=== PATIENT | male | born 1950 | race Caucasian/White ===

== ENCOUNTER 2023-03-07 20:12 | Inpatient (IN) | payer MEDICARE, BC ==
[~2023-03-07] VITALS: Ht 170.2 cm; Wt 96.4 kg
[2023-03-07 20:48] LABS: BASOPHILS % (AUTO) 0.4 % (0-1); EOSINOPHILS # (AUTO) 0.2 X10'3 (0-0.9); EOSINOPHILS % (AUTO) 1.6 % (0-6); HEMATOCRIT 39.8 % (42.0-52.0); HEMOGLOBIN 13.2 g/dl (14.0-17.9); LYMPHOCYTES % (AUTO) 17.7 % (21-51); MEAN CORPUSCULAR HEMOGLOBIN 33.2 PG (27.0-31.0); MEAN CORPUSCULAR HGB CONC 33.1 g/dL (33.0-36.5); MEAN CORPUSCULAR VOLUME 100.4 FL (78-98); MONOCYTES # (AUTO) 1.3 X10'3 (0-0.9); MONOCYTES % (AUTO) 11.3 % (2-12); NEUTROPHILS # (AUTO) 7.9 X10'3 (1.8-7.7); PLATELET COUNT 234 X10'3 (140-440); RED BLOOD COUNT 3.97 X10'6 (4.70-6.10); RED CELL DISTRIBUTION WIDTH 13.3 % (11.5-14.5); WHITE BLOOD COUNT 11.5 X10'3 (4.5-11.0)
[2023-03-07 21:03] LABS: ALANINE AMINOTRANSFERASE 22 U/L (12-78); ALBUMIN 3.3 G/DL (3.4-5.0); ALKALINE PHOSPHATASE 49 IU/L (46-116); ANION GAP 11 (8-16); ASPARTATE AMINO TRANSFERASE 15 U/L (10-37); BILIRUBIN,TOTAL 1.2 MG/DL (0.1-1.0); BLOOD UREA NITROGEN 11 MG/DL (7-18); CALCIUM 8.3 MG/DL (8.5-10.1); CHLORIDE 107 MMOL/L (99-107); GLUCOSE 97 MG/DL (70-104); LIPASE 67 U/L (73-393); POTASSIUM 3.8 MMOL/L (3.5-5.1); SODIUM 142 MMOL/L (135-145); TOTAL CARBON DIOXIDE 24.2 MMOL/L (24-32); TOTAL PROTEIN 6.7 G/DL (6.4-8.2); eGFR 73 ML/MIN
[2023-03-08] VITALS (17 sets, daily range): BP systolic 126–159; BP diastolic 74–95
[2023-03-08] MEDS: dextrose 5%-1/2 normal saline 1,000 ML IV SCH ×3 (01:30→20:16)
[2023-03-08] MEDS ORDERED: ondansetron 4mg rapidly disintigrating tab PO PRN (01:30)
[2023-03-08] MEDS ORDERED: mag hydrox/Alum hydrox/simeth 30ml oral suspension PO PRN (01:30)
[2023-03-08] MEDS ORDERED: HYDROmorphone inj. 0.5 MG/0.5 ML DISP.SYRIN IV PRN (01:30)
[2023-03-08] MEDS ORDERED: acetaminophen 325mg tablet PO PRN ×2 (01:30)
[2023-03-08] MEDS ORDERED: morphine 2 MG/ML inj. syringe IV PRN ×2 (01:30→15:10)
[2023-03-08] MEDS ORDERED: diphenhydrAMINE 50 mg/ml inj IV PRN (01:30)
[2023-03-08] MEDS ORDERED: HYDROcodone/acetaminophen 10/325mg tab PO PRN (01:30)
[2023-03-08] MEDS ORDERED: magnesium hydroxide 30ml (MOM) UD suspension PO PRN (01:30)
[2023-03-08] MEDS ORDERED: acetaminophen 650mg rectal suppository RC PRN (01:30)
[2023-03-08] MEDS ORDERED: HYDROcodone/acetaminophen 5mg/325mg tablet PO PRN (01:30)
[2023-03-08] MEDS ORDERED: bisacodyl 10mg suppository rectal RC PRN (01:30)
[2023-03-08] MEDS ORDERED: diphenhydrAMINE 25mg capsule PO PRN (01:30)
[2023-03-08 02:33] LABS: HEMOGLOBIN A1C 5.8 % (4.5-6.2)
[2023-03-08] MEDS ORDERED: VANCOMYCIN 1,500MG inj. 1,500 MG in normal saline 500ml IV soln 300 ML IV ONE (02:38)
[2023-03-08 02:39] LABS: CREATINE KINASE 129 U/L (39-308); ETHANOL < 0.010 GM/DL (0.0-0.010); MAGNESIUM 2.2 MG/DL (1.5-2.4); PHOSPHORUS 2.5 MG/DL (2.3-4.5)
[2023-03-08] MEDS: ondansetron/PF 4mg/2ml inj IV PRN ×2 (05:47→20:19)
[2023-03-08 06:07] LABS: CLARITY,URINE CLEAR (Clear); COLOR,URINE YELLOW (Yellow); GLUCOSE, URINE NEGATIVE (Neg); KETONES,URINE 15 mg/dl (Neg); LEUKOCYTE ESTERASE ,URINE NEGATIVE (Neg); NITRITES, URINE NEGATIVE (Neg); OCCULT BLOOD,URINE TRACE-INTACT (Neg); PH,URINE 5.5 (4.8-8.0); PROTEIN,URINE NEGATIVE (Neg); URINE AMPHETAMINE SCREEN NEGATIVE (Neg); URINE BARBITUATE SCREEN NEGATIVE (Neg); URINE BENZODIAZEPINES SCREEN NEGATIVE (Neg); URINE CANNABINOID SCREEN POSITIVE (Neg); URINE COCAINE SCREEN NEGATIVE (Neg); URINE METHADONE SCREEN NEGATIVE (Neg); URINE OPIATE SCREEN NEGATIVE (Neg); URINE PHENCYCLIDINE SCREEN NEGATIVE (Neg)
[2023-03-08 06:13] LABS: UA COLLECTION TYPE URINAL
[2023-03-08 06:15] LABS: BACTERIA,URINE NONE SEEN /HPF (Neg); MUCUS STRANDS NONE SEEN /LPF (Neg); RBC,URINE 0-2 /HPF (0-2); SQUAMOUS EPITHELIAL CELL,UR FEW /LPF (FEW)
[2023-03-08] MEDS: piperacillin/tazo 4.5gm/100ml 100 ML IV SCH ×3 (07:07→22:00)
[2023-03-08] MEDS: ipratropium/albuterol 3ml nebule NEB SCH ×5 (07:31→23:00)
[2023-03-08 07:32] LABS: APTT 30 SECONDS (22-32)
[2023-03-08] MEDS ORDERED: pantoprazole 40MG/NS 100ML BAG 100 ML IV SCH (08:00)
[2023-03-08] MEDS: methylPREDNISolone sod succ 125mg/2ml vial IV SCH ×2 (08:28→20:13)
[2023-03-08] MEDS: docusate sod 100mg capsule PO SCH ×2 (08:28→20:13)
[2023-03-08] MEDS: pantoprazole 40MG/NS 100ML BAG 100 ML IV SCH (08:35)
[2023-03-08] MEDS ORDERED: BUPIVAcaine/PF 2.5 mg/ml (0.25%) 30ml vial ONE (14:30)
[2023-03-08] MEDS ORDERED: vancomycin/NS 1 GM ADD-VANTAGE 250 ML IV SCH (15:00)
[2023-03-08] MEDS ORDERED: ondansetron/PF 4mg/2ml inj ONE (15:08)
[2023-03-08] MEDS ORDERED: sevoflurane 250ml liquid IH ONE (15:08)
[2023-03-08] MEDS ORDERED: meperidine/PF 25mg/ml syringe IV PRN ×3 (15:10)
[2023-03-08] MEDS ORDERED: morphine 4 MG/ML inj SYRINge IV PRN (15:10)
[2023-03-08] MEDS ORDERED: ringers solution, lacted 1,000 ML IV SCH (15:10)
[2023-03-08] MEDS ORDERED: proCHLORperazine 10 MG/2 ml inj IV PRN (15:10)
[2023-03-08] MEDS ORDERED: ondansetron/PF 4mg/2ml inj IV PRN (15:10)
[2023-03-08] MEDS ORDERED: fentaNYL/PF 50MCG/1 ML 2ML syringe ONE (15:13)
[2023-03-08] MEDS ORDERED: midazolam 1 mg/ML 2ml injection ONE (15:13)
[2023-03-08] MEDS ORDERED: propofol inj 20 ML IV ONE (15:14)
[2023-03-08] MEDS ORDERED: LIDOcaine 2% (20mg/ml) 5ml vial ONE (15:14)
[2023-03-08] MEDS ORDERED: ATOR10TA70 PO (15:15)
[2023-03-08] MEDS ORDERED: TIOT4MIS3 PO (15:15)
[2023-03-08] MEDS ORDERED: LISI10TA27 PO (15:15)
[2023-03-08] MEDS ORDERED: rocuronium 10mg/ml inj IV ONE (15:18)
[2023-03-08] MEDS ORDERED: dexamethasone sod phosphate 4mg/ml inj. ONE (15:29)
[2023-03-08] MEDS ORDERED: sugammadex 200mg/2ml injection IV ONE (15:52)
[2023-03-08] MEDS ORDERED: acetaminophen 1,000mg/100ml IV 100 ML IV ONE (15:57)
--- NOTE | 2023-03-08 16:09 | NUR ---
Received from OR via BED accompanied by Anesthesiologist DR. GROSS and report given by Anesthesiolgist. PT IS AWAKE, DENIES PAIN - WILL CONTINUE TO MONITOR AND TREAT PRN. 2 IVS TO RFA, BOTH ARE 20 GUAGE, DRESSINGS TO THREE OP SITES: MID LINE, R ABD AND L ABD - DRESSING CDI. ST, BREATHING EASILY W/ PERIODIC DRY COUGH. INSTRUCTED IN USE OF PURSED LIP BREATHING. SDI'S IN PLACE. Addendum: 03/08/23 at 1626 by Zachary Barragan RN Amended: Links added.
--- NOTE | 2023-03-08 17:34 | NUR ---
Patient on the unit, at bedside. Oriented to room.
--- NOTE | 2023-03-08 17:39 | NUR ---
PATIENT HAS MET ALL CRITERIA FOR TRANSFER TO ORTHO FLOOR. VSS. DRESSINGS INTACT. BED LOW, CALL LIGHT PRESENT AND 2 RAILS UP. RN PRESENT TO ACCEPT CARE OF PATIENT AND REPORT HAS BEEN CALLED. ALL QUESTIONS ANSWERED TO ACCEPTING RN. Addendum: 03/08/23 at 1742 by Bird Simon RN Amended: Links added.
--- NOTE | 2023-03-08 18:38 | NUR ---
Report given to CAIN AMES.
--- NOTE | 2023-03-08 19:00 | NUR ---
Patient in room ORTHO 4013. I have received report from KWAKU Owen and had the opportunity to ask questions and assume patient care. Addendum: 03/08/23 at 1950 by Joselyn Espitia RN Amended: Links added.
--- NOTE | 2023-03-08 19:00 | NUR ---
Patient in room ORTHO 4013. I have received report from KWAKU Owen and had the opportunity to ask questions and assume patient care. Addendum: 03/08/23 at 1947 by Joselyn Espitia RN Amended: Links added.
[2023-03-08] MEDS: vancomycin/NS 1 GM ADD-VANTAGE 250 ML IV SCH (20:16)
[2023-03-08] MEDS ORDERED: temazepam 15mg capsule PO PRN (21:00)
[2023-03-09 02:00] VITALS: BP 121/67
[2023-03-09] MEDS: ipratropium/albuterol 3ml nebule NEB SCH ×4 (03:00→14:58)
[2023-03-09] MEDS: piperacillin/tazo 4.5gm/100ml 100 ML IV SCH (03:06)
[2023-03-09 06:00] VITALS: BP 104/50
--- NOTE | 2023-03-09 06:15 | NUR ---
Patient in room ORTHO 4013. I have received report from Joselyn AMES and had the opportunity to ask questions and assume patient care.
[2023-03-09 07:02] LABS: BASOPHILS % (AUTO) 0 % (0-1); EOSINOPHILS % (AUTO) 0 % (0-6); HEMATOCRIT 35.7 % (42.0-52.0); HEMOGLOBIN 11.9 g/dl (14.0-17.9); LYMPHOCYTES # (AUTO) 0.7 X10'3 (1.1-4.8); LYMPHOCYTES % (AUTO) 5.2 % (21-51); MEAN CORPUSCULAR HEMOGLOBIN 33.7 PG (27.0-31.0); MEAN CORPUSCULAR HGB CONC 33.5 g/dL (33.0-36.5); MEAN CORPUSCULAR VOLUME 100.8 FL (78-98); MEAN PLATELET VOLUME 8.3 FL (7.4-10.4); MONOCYTES # (AUTO) 0.5 X10'3 (0-0.9); MONOCYTES % (AUTO) 3.8 % (2-12); NEUTROPHILS # (AUTO) 12.4 X10'3 (1.8-7.7); PLATELET COUNT 204 X10'3 (140-440); RED BLOOD COUNT 3.54 X10'6 (4.70-6.10); WHITE BLOOD COUNT 13.7 X10'3 (4.5-11.0)
[2023-03-09 07:25] LABS: ALANINE AMINOTRANSFERASE 21 U/L (12-78); ALBUMIN 2.7 G/DL (3.4-5.0); ALBUMIN/GLOBULIN RATIO 0.8 (1.1-1.5); ALKALINE PHOSPHATASE 44 IU/L (46-116); ANION GAP 7 (8-16); ASPARTATE AMINO TRANSFERASE 16 U/L (10-37); BILIRUBIN,TOTAL 0.4 MG/DL (0.1-1.0); BLOOD UREA NITROGEN 7 MG/DL (7-18); BUN/CREATININE RATIO 8.4 (10.0-20.0); CALCIUM 8.1 MG/DL (8.5-10.1); CHLORIDE 108 MMOL/L (99-107); CHOL/HDL RATIO 2.4 (0.00-4.99); CHOLESTEROL 104 MG/DL (0-200); CREATININE 0.83 MG/DL (0.60-1.10); GLUCOSE 136 MG/DL (70-104); HDL CHOLESTEROL 43 MG/DL (35-60); LDL CHOLESTEROL 53 MG/DL (50-100); POTASSIUM 4.1 MMOL/L (3.5-5.1); SODIUM 142 MMOL/L (135-145); TOTAL CARBON DIOXIDE 26.9 MMOL/L (24-32); TOTAL PROTEIN 6.1 G/DL (6.4-8.2); TRIGLYCERIDES 41 MG/DL (20-135); eGFR > 90 ML/MIN
[2023-03-09] MEDS ORDERED: Tiotropium Br/Olodaterol HCl (Stiolto Respimat Inhal Spray) PO SCH (08:00)
[2023-03-09] MEDS ORDERED: lisinopril 10 MG tablet PO SCH (08:00)
[2023-03-09] MEDS ORDERED: atorvastatin 10mg tablet PO SCH (08:00)
[2023-03-09] MEDS: pantoprazole 40MG/NS 100ML BAG 100 ML IV SCH (08:03)
[2023-03-09] MEDS: methylPREDNISolone sod succ 125mg/2ml vial IV SCH (08:03)
[2023-03-09] MEDS: vancomycin/NS 1 GM ADD-VANTAGE 250 ML IV SCH (08:09)
[2023-03-09] MEDS: docusate sod 100mg capsule PO SCH (09:00)
[2023-03-09] MEDS ORDERED: HYDR-3965 PO (09:51)
[2023-03-09 10:00] VITALS: BP 108/53
[2023-03-09 18:00] VITALS: BP 125/88
--- NOTE | 2023-03-09 18:00 | NUR ---
Patient in room ORTHO 4013. I have received report from KWAKU OLMSTEAD and had the opportunity to ask questions and assume patient care.
--- NOTE | 2023-03-09 18:00 | NUR ---
I have reviewed and agree with interventions, assessments, and documentation by Rosa Betancourt LVN.
--- NOTE | 2023-03-09 18:15 | NUR ---
Problems reprioritized. Patient report given, questions answered & plan of care reviewed with Alisa AMES.
--- NOTE | 2023-03-09 19:00 | NUR ---
PT. DISCHARGED TO HOME VIA TRANSPORTATION PROVIDED BY HOSPITAL. IV DISCONTINUED WITH CATH TIP INTACT. DISCHARGE INSTRUCTIONS GIVEN TO PT WITH VERBALIZED UNDERSTANDING OF INSTRUCTIONS.
--- NOTE | 2023-03-09 19:15 | NUR ---
TRANSPORTED PT TO [facility] [employer] [facility] VIA W/C. PLANT OPERATIONS WORKER ACCOMPANIED WELL. ALL BELONGINGS GIVEN TO PATIENT. PT SITTING IN FRONT SEAT.
[2023-03-10] MEDS ORDERED: pantoprazole 40mg Tablet.DR PO SCH (07:30)
[2023-03-10] MEDS ORDERED: VANCOMYCIN LEVEL IV ONE (08:30)
== END 2023-03-09 18:55 | disposition home or self-care (01) | DRG 341 ==
LOC: ER 20:14 → ED HOLD 03-08 01:36 → ORTHO 4S 03-08 17:37
PROVIDERS: ADMIT Family Medicine; ATTEND Internal Medicine
PROC: 0DTJ4ZZ Resection of Appendix, Percutaneous Endoscopic Approach (ICD-10-PCS; principal; 2023-03-08 15:08)
DX: K35.80 Unspecified acute appendicitis (principal); J18.9 Pneumonia, unspecified organism; J96.00 Acute respiratory failure, unspecified whether with hypoxia or hypercapnia; J44.1 Chronic obstructive pulmonary disease with (acute) exacerbation; F10.90 Alcohol use, unspecified, uncomplicated; D64.9 Anemia, unspecified; I10 Essential (primary) hypertension; Z87.891 Personal history of nicotine dependence
CPT/HCPCS: 36415; 71045; 80053; 80061; 80305; 80320; 81001; 82550; 83036; 83605; 83690; 83735; 83880; 84100; 84443; 85025; 85610; 85730; 87040; 87081; 87088; 88307; 93005; 94640; 94760; 99285; A4215; A4615; A4618; A7000; C9113; G0378; J0131; J1100; J2250; J2270; J2405; J2543; J2704; J2930; J3010; J3370; J3490; J7030; J7040

== ENCOUNTER 2023-06-29 07:54 | Day surgery (SDC) | payer MEDICARE, BC ==
[~2023-06-29 07:54] MED LIST: ATOR10TA70 PO; LISI10TA27 PO; TIOT4MIS3 PO
[2023-06-29] MEDS ORDERED: TIOT4MIS3 (08:58)
[2023-06-29] MEDS ORDERED: fentaNYL/PF 50MCG/1 ML 2ML syringe ONE (09:53)
[2023-06-29] MEDS ORDERED: MIDAZolam 1 MG/ML 5ML VIAL ONE (09:54)
[2023-06-29 09:55] VITALS: BP 151/86; PULSE 68; RESP 10
[2023-06-29 10:30] VITALS: BP 149/105; PULSE 64; RESP 17; O2SAT 96
[2023-06-29 10:40] VITALS: BP 114/91; PULSE 59; RESP 18; O2SAT 92
[2023-06-29 10:50] VITALS: BP 120/91; PULSE 54; RESP 14; O2SAT 94
[2023-06-29 11:00] VITALS: BP 125/105; PULSE 54; RESP 18; O2SAT 95
== END 2023-06-29 11:07 | disposition home or self-care (01) ==
LOC: GI LAB 07:54
PROVIDERS: ATTEND Specialist
DX: R10.31 Right lower quadrant pain (principal); K57.30 Diverticulosis of large intestine without perforation or abscess without bleeding; K64.8 Other hemorrhoids; I10 Essential (primary) hypertension; J44.9 Chronic obstructive pulmonary disease, unspecified; Z86.010 Personal history of colon polyps; Z86.718 Personal history of other venous thrombosis and embolism; Z86.711 Personal history of pulmonary embolism; Z87.891 Personal history of nicotine dependence; Z86.73 Personal history of transient ischemic attack (TIA), and cerebral infarction without residual deficits; Z79.899 Other long term (current) drug therapy; Z79.82 Long term (current) use of aspirin; Z72.89 Other problems related to lifestyle
CPT/HCPCS: 45378; G0500; J2250; J3010; J7030; Z7512; 99152; A4620